=== PATIENT | female | born 1990 | race Caucasian/White ===

== ENCOUNTER → 2022-09-11 | Outpatient (CLI) | payer BC ==
--- NOTE | 2022-09-11 20:09 | US ---
EXAMINATION TYPE: US pelvic complete DATE OF EXAM: 09/11/2022 COMPARISON: NONE CLINICAL INDICATION: Female, 32 years old with history of O03.4INCOMPLETE SPONTAN ABORTWITHOUT GIOVANI O 03.9; retained products TECHNIQUE: Transabdominal (TA EXAM MEASUREMENTS: Uterus: 10.8 x 3.6 x 5.2 cm Endometrial Stripe: .9 cm Right Ovary: 4.2 x 2.3 x 2.7 cm Left Ovary: 3.4 x 2.2 x 2.9 cm 1. Uterus: Anteverted no retained products visualized. 2. Endometrium: wnl 3. Right Ovary: wnl 4. Left Ovary: wnl 5. Bilateral Adnexa: wnl 6. Posterior cul-de-sac: wnl IMPRESSION: 1. No evidence for acute process. No evidence for retained products of conception. 2. Endometrium within normal limits for thickness.
== END | disposition home or self-care (01) ==
LOC: RADUSWWP 13:03
PROVIDERS: ATTEND Obstetrics & Gynecology
DX: O03.4 Incomplete spontaneous abortion without complication (principal)
CPT/HCPCS: 76856